=== PATIENT | male | born 1965 | race African-American/Black ===

== ENCOUNTER 2017-06-11 00:57 | Emergency (ER) ==
[2017-06-11 01:07] VITALS: BP 143/84; TEMP 98; BMI 20.9
--- NOTE | 2017-06-11 01:20 | ED.PDOC ---
General ED Provider: Dr. NETO WAITE Chief Complaint: Extremity Pain/Injury Stated Complaint: Patient is a 51 year old male who comes to the ER with left elbow pain that started after he hit the left elbow one week ago. Patient states he has been taking BC powders but still working and has continued to have severe pain. Time Seen by Physician: 01:19 Mode of Arrival: Walk-In Information Source: Patient Nursing and Triage Documentation Reviewed and Agree: Yes Reviewed sepsis parameters & appropriate labs ordered?: No System Inflammatory Response Syndrome: Not Applicable Sepsis Protocol: For patient's 13 years and over: Temp is 96.8 and below OR 101 and greater Pulse >90 BPM Resp >20/minute Acutely Altered Mental Status Are patient's symptoms suggestive of a new infection, such as: -Pneumonia -Skin, Soft Tissue -Endocarditis -UTI -Bone, Joint Infection -Implantable Device -Acute Abdominal Infection -Wound Infection -Meningitis -Blood Stream Catheter Infection -Unknown System Inflammatory Response Syndrome: Not Applicable Musculoskeletal Complaint Exam - Elbow Pain Complaint/Exam Mechanism of Injury: Reports: Trauma Onset/Duration: 1 week ago Symptoms Are: Still present Onset of Pain: Reports: Immediate, Post accident Initial Severity: Severe Current Severity: Moderate Location: Reports: Discrete Character: Reports: Aching, Throbbing Alleviating: Reports: None Aggravating: Reports: Movement, Twisting Associated Signs and Symptoms: Denies: Swelling, Redness, Bruising, Fever, Weakness, Numbness, Tingling Related Surgical History: Reports: Left elbow Elbow Findings: Present: Swelling Tenderness: Present: Lateral Condyle Limited Range of Motion: Absent: Flexion, Extension, Pronation, Supination Differential Diagnoses: Sprain, Strain, Tendonitis Review of Systems - Review Of Systems Constitutional: Reports: No symptoms Musculoskeletal: Reports: Joint pain, Joint swelling All Other Systems: Reviewed and Negative Past Medical History - Past Medical History Previously Healthy: Yes Endocrine: Reports: Dyslipidemia Cardiovascular: Reports: Hypertension Respiratory: Reports: None Hematological: Reports: None Gastrointestinal: Reports: None Genitourinary: Reports: None Neuro/Psych: Reports: None Musculoskeletal: Reports: None Cancer: Reports: None - Surgical History General Surgical History: Reports: Hernia Repair (BILATERAL INGUINAL HERNIA REPAIR 2017) - Family History Family History: Reports: Unknown - Social History Smoking Status: Current every day smoker, Heavy tobacco smoker Hx Substance Use: No Alcohol Screening: Occasionally - Immunizations Tetanus Shot up to Date: Yes Physical Exam - Physical Exam Appearance: Well-appearing Ill-appearing: Mild Pain Distress: Moderate Neck: Supple Skin: Warm Neurological: Sensation intact, Motor intact, Reflexes intact, Cranial nerves intact, Alert, Oriented Psychiatric: Anxious Interpretation - Radiology Interpretation Radiology Interpretation By: ED Physician Radiology Results: Negative Exam Interpreted: Portable CXR Radiology Interpretation By: ED Physician Radiology Results: Negative Exam Interpreted: Other (Elbow and shoulder ) - EKG Interpretation Time of EKG #1: 01:25 Rate: Normal Rhythm: Sinus [place]: NL ST Segment: Normal Interpretation: Right ventricular conduction delay Critical Care Note - Critical Care Note Total Time (mins): 0 Course - Course Hematology/Chemistry: 06/11/17 01:30 Orders, Labs, Meds: Lab Review 06/11/17 01:30 WBC 12.83 H RBC 4.35 L Hgb 13.1 L Hct 38.3 L MCV 88.0 MCH 30.1 MCHC 34.2 RDW Coeff of Megan 14.3 Plt Count 347 Immature Gran % (Auto) 1.5 Neut % (Auto) 51.9 Lymph % (Auto) 36.6 [place] % (Auto) 5.6 Eos % (Auto) 3.9 Baso % (Auto) 0.5 Immature Gran # (Auto) 0.2 Neut # (Auto) 6.7 Lymph # (Auto) 4.7 H [place] # (Auto) 0.7 Eos # (Auto) 0.5 Baso # (Auto) 0.1 Orders Category Date Time Status EKG-(ED ONLY) Stat CARDIO 06/11/17 01:03 Completed CBC W/ AUTO DIFF Stat LAB 06/11/17 01:30 Completed COMPREHENSIVE METABOLIC PANEL Stat LAB 06/11/17 01:30 Received CREATINE KINASE Stat LAB 06/11/17 01:30 Received TROPONIN I Stat LAB 06/11/17 01:30 Received Ketorolac Tromethamine [Toradol] MEDS 06/11/17 01:38 Discontinued 60 mg IM ONCE STA Methylprednisolone Sod Succ/Pf [Solu-Medrol 125 mg] MEDS 06/11/17 01:38 Discontinued 125 mg IM ONCE STA CHEST, 1V AP ONLY Stat RADS 06/11/17 01:03 Taken ELBOW, LEFT MIN 3 VIEWS Stat RADS 06/11/17 01:14 Taken SHOULDER, LEFT MIN 2V Stat RADS 06/11/17 01:03 Taken Medications Discontinued Medications Generic Name Dose Route Start Last Admin Trade Name Freq PRN Reason Stop Dose Admin Ketorolac Tromethamine 60 mg 06/11/17 01:38 06/11/17 01:50 Toradol IM 06/11/17 01:39 60 mg ONCE STA Administration Methylprednisolone Sodium Succinate 125 mg 06/11/17 01:38 06/11/17 01:50 Solu-Medrol 125 Mg IM 06/11/17 01:39 125 mg ONCE STA Administration Vital Signs: Temp Pulse Resp BP Pulse Ox 06/11/17 00:58 98 F 79 18 143/84 H 98 Departure - Departure Time of Disposition: 02:01 Disposition: HOME SELF-CARE Discharge Problem: Injury of upper extremity, Left elbow tendinitis Instructions: Tendinitis (ED) Condition: Stable Pt referred to PMD for follow-up: Yes IPMP verified?: No Additional Instructions: Take medications as prescribed Follow up with your PCP in 3 days Rest your elbow for one week. Prescriptions: Hydrocodone/Acetaminophen [[place] 5-325 Tablet] 1 tab PO Q6HR PRN #14 tablet PRN Reason: PAIN Ibuprofen [Motrin] 600 mg PO Q6H PRN #30 tablet PRN Reason: Analgesia Allergies/Adverse Reactions: Allergies No Known Drug Allergies Adverse Reaction (Verified 06/11/17 01:10) Home Medications: Ambulatory Orders Hydrocodone/Acetaminophen [[place] 5-325 Tablet] 1 tab PO Q6HR PRN #14 tablet 09/23 Ibuprofen [Motrin] 600 mg PO Q6H PRN #30 tablet 06/11/17 Lisinopril/Hydrochlorothiazide [Lisinopril-Hctz 10-12.5 mg Tab] 1 each PO DAILY 06/11/17 Disposition Discussed With: Patient, Family
[2017-06-11] MEDS ORDERED: SOLU-MEDROL 125 MG IM STA (01:38)
[2017-06-11] MEDS ORDERED: TORADOL IM STA (01:38)
--- NOTE | 2017-06-11 07:12 | DI ---
EXAM: Chest, one-view HISTORY: Chest Pain FINDINGS: Cardiac and mediastinal contours are normal. Pulmonary vasculature is normal. Lungs are clear. Bony thorax is unremarkable. IMPRESSION: Within normal limits
--- NOTE | 2017-06-11 07:14 | DI ---
EXAM: Left shoulder three view HISTORY: Shoulder pain FINDING/IMPRESSION: No bony or articular abnormality. Normal exam.
--- NOTE | 2017-06-11 07:17 | DI ---
Beginning and Exam: Left elbow three views HISTORY: Elbow injury and pain Findings / impression: No significant bony or articular abnormality. Negative exam.
== END 2017-06-11 02:12 | disposition home or self-care (01) ==
LOC: ED 00:57
DX: M25.522 Pain in left elbow (principal); M77.12 Lateral epicondylitis, left elbow; W22.8XXA Striking against or struck by other objects, initial encounter; F17.210 Nicotine dependence, cigarettes, uncomplicated
CPT/HCPCS: 36415; 80053; 82550; 82553; 84484; 85025; 93005; 93010; 96372; 99283

== ENCOUNTER 2017-07-18 20:16 | Emergency (ER) ==
[2017-07-18 20:21] VITALS: BP 141/82; TEMP 98.3; BMI 21.7
[2017-07-18] MEDS ORDERED: DECADRON 4 MG/ML SDV IM STA (20:34)
--- NOTE | 2017-07-18 20:36 | ED.PDOC ---
General ED Provider: Dr. NETO WAITE Chief Complaint: Elbow Pain/Injury Stated Complaint: Patient returns to the ER with Left elbow pain that he has had for over a month. States he used a Tennis elbow brace but has not improved much. Time Seen by Physician: 20:34 Mode of Arrival: Walk-In Information Source: Patient Nursing and Triage Documentation Reviewed and Agree: Yes Reviewed sepsis parameters & appropriate labs ordered?: Yes System Inflammatory Response Syndrome: Not Applicable Sepsis Protocol: For patient's 13 years and over: Temp is 96.8 and below OR 101 and greater Pulse >90 BPM Resp >20/minute Acutely Altered Mental Status Are patient's symptoms suggestive of a new infection, such as: -Pneumonia -Skin, Soft Tissue -Endocarditis -UTI -Bone, Joint Infection -Implantable Device -Acute Abdominal Infection -Wound Infection -Meningitis -Blood Stream Catheter Infection -Unknown System Inflammatory Response Syndrome: Not Applicable Musculoskeletal Complaint Exam - Elbow Pain Complaint/Exam Mechanism of Injury: Reports: Trauma (Remote ) Onset/Duration: weeks Symptoms Are: Still present Onset of Pain: Reports: Immediate Initial Severity: Severe Current Severity: Moderate Location: Reports: Discrete (Left epicondyle) Character: Reports: Aching, Throbbing Alleviating: Reports: Rest, Ice Aggravating: Reports: Movement Associated Signs and Symptoms: Denies: Swelling, Redness, Bruising, Fever, Weakness, Numbness, Tingling Related Surgical History: Reports: Left elbow Tenderness: Present: Lateral Condyle Limited Range of Motion: Present: Extension Differential Diagnoses: Sprain, Strain, Tendonitis Review of Systems - Review Of Systems Constitutional: Reports: No symptoms Eyes: Reports: No symptoms Ears, Nose, Mouth, Throat: Reports: No symptoms Respiratory: Reports: No symptoms Cardiac: Reports: No symptoms GI: Reports: No symptoms : Reports: No symptoms Musculoskeletal: Reports: Joint pain Skin: Reports: No symptoms Neurological: Reports: Anxiety Endocrine: Reports: No symptoms Hematologic/Lymphatic: Reports: No symptoms All Other Systems: Reviewed and Negative Past Medical History - Past Medical History Previously Healthy: Yes Endocrine: Reports: Dyslipidemia Cardiovascular: Reports: Hypertension Respiratory: Reports: None Hematological: Reports: None Gastrointestinal: Reports: None Genitourinary: Reports: None Neuro/Psych: Reports: None Musculoskeletal: Reports: None Cancer: Reports: None - Surgical History General Surgical History: Reports: Hernia Repair (BILATERAL INGUINAL HERNIA REPAIR 2017) - Family History Family History: Reports: Unknown - Social History Smoking Status: Current every day smoker, Heavy tobacco smoker Hx Substance Use: No Alcohol Screening: Occasionally - Immunizations Tetanus Shot up to Date: Yes Physical Exam - Physical Exam Appearance: Well-appearing Ill-appearing: Mild Pain Distress: Moderate ENT: Ears normal, Nose normal, Oropharynx normal Neck: Supple Respiratory: Airway patent, Breath sounds clear, Breath sounds equal, Respirations nonlabored Cardiovascular: RRR, Pulses normal, No rub, No murmur GI/: Soft, Nontender, No masses, Bowel sounds normal, No Organomegaly Musculoskeletal: Limited ROM Skin: Warm, Dry, Normal color Neurological: Sensation intact, Motor intact, Reflexes intact, Cranial nerves intact, Alert, Oriented Psychiatric: Anxious Interpretation - Radiology Interpretation Radiology Interpretation By: Radiologist Radiology Results: Negative Exam Interpreted: Other (left elbow x ray ) Critical Care Note - Critical Care Note Total Time (mins): 0 Course - Course Orders, Labs, Meds: Orders Category Date Time Status Dexamethasone 4 mg/ml Inj [Decadron 4 mg/ml Sdv] MEDS 07/18/17 20:34 Discontinued 8 mg IM ONCE STA ELBOW, LEFT MIN 3 VIEWS Stat RADS 07/18/17 20:41 Completed Medications Discontinued Medications Generic Name Dose Route Start Last Admin Trade Name Freq PRN Reason Stop Dose Admin Dexamethasone Sodium Phosphate 8 mg 07/18/17 20:34 07/18/17 20:43 Decadron 4 Mg/Ml Sdv IM 07/18/17 20:35 8 mg ONCE STA Administration Vital Signs: Temp Pulse Resp BP Pulse Ox 07/18/17 20:17 98.3 F 80 20 141/82 H 97 Departure - Departure Time of Disposition: 21:05 Disposition: HOME SELF-CARE Discharge Problem: Tennis elbow Qualifiers: Laterality: left Qualified Code(s): M77.12 - Lateral epicondylitis, left elbow Instructions: Tennis Elbow (ED) Condition: Fair Pt referred to PMD for follow-up: Yes IPMP verified?: No Additional Instructions: Continue to use brace Follow up with PCP for Orthopedic referral for joint injection. Prescriptions: Methylprednisolone [Medrol Dosepak] 4 mg PO DIRECTED #1 pkg Tramadol HCl [Ultram] 50 mg PO Q6H PRN #7 tablet PRN Reason: Severe Pain Allergies/Adverse Reactions: Allergies No Known Drug Allergies Adverse Reaction (Verified 07/18/17 20:24) Home Medications: Ambulatory Orders Amlodipine Bes/Olmesartan Med [Irasema 10-20 Mg Tablet] 1 each PO DAILY 07/18/17 Methylprednisolone [Medrol Dosepak] 4 mg PO DIRECTED #1 pkg 07/18/17 Tramadol HCl [Ultram] 50 mg PO Q6H PRN #7 tablet 07/18/17 Disposition Discussed With: Patient, Family
--- NOTE | 2017-07-18 21:22 | DI ---
EXAM: Four views left elbow. HISTORY: Pain. No history of trauma. FINDINGS: The bones are intact with no evidence of fracture. The joint spaces are maintained. No so ft tissue abnormality. Impression: Negative left elbow.
== END 2017-07-18 21:10 | disposition home or self-care (01) ==
LOC: ED 20:16
DX: M77.12 Lateral epicondylitis, left elbow (principal); F17.210 Nicotine dependence, cigarettes, uncomplicated
CPT/HCPCS: 96372; 99282

== ENCOUNTER 2017-07-22 13:19 | Outpatient (CLI) ==
--- NOTE | 2017-07-22 14:53 | US ---
EXAM: Testicular ultrasound HISTORY: Right testicular pain COMPARISON: None TECHNIQUE: Sonographic and Doppler evaluation of the testicles were performed. FINDINGS: The right testicle measures 4.7 x 1.7 x 3.1 cm. The epididymis is normal in appearance. There is no varicocele or mass. There is a small hydrocele. There is normal color Doppler flow with out signs of torsion. The left testicle measures 3.9 x 1.9 x 3.0 cm. The epididymis is in appearance. There is no varico alonso or mass. There is a small hydrocele. There is normal color Doppler flow without signs of torsion . Patient with history of bilateral hernia repair. IMPRESSION: No acute abnormality of the testicles with small hydroceles
== END 2017-07-22 13:20 | disposition home or self-care (01) ==
LOC: RAD 13:19
PROVIDERS: ATTEND Nurse Practitioner Family
DX: N50.811 Right testicular pain (principal); N50.89 Other specified disorders of the male genital organs